=== PATIENT | female | born 1995 | race Caucasian/White ===

== ENCOUNTER 2016-11-12 13:36 | Emergency (ER) | payer OTHER ==
[2016-11-12] MEDS ORDERED: TETANUS,DIPHTHERIA TOXOID SYRINGE IM V ONE (14:37)
[2016-11-12] MEDS ORDERED: IBUPROFEN 600 MG TABLET ONE (14:37)
--- NOTE | 2016-11-12 14:59 | RAD ---
HISTORY: Right hand pain after punching a dog today. Pain over third, fourth and fifth metacarpals. Initial encounter. COMPARISON: None TECHNIQUE: Three views of the right hand FINDINGS: Bones: No fracture or dislocation. Patient is unable to remove right fourth digit ring. Joints: Unremarkable. Soft tissue: Normal. IMPRESSION: No fracture or dislocation.
== END 2016-11-12 15:05 | disposition home or self-care (01) ==
LOC: ED 13:36
DX: S61.451A Open bite of right hand, initial encounter (principal); S60.221A Contusion of right hand, initial encounter; J45.909 Unspecified asthma, uncomplicated; F17.210 Nicotine dependence, cigarettes, uncomplicated; Z23 Encounter for immunization; Z79.51 Long term (current) use of inhaled steroids; W54.0XXA Bitten by dog, initial encounter
CPT/HCPCS: 90714; 73130; 90471; 99283 ×2; A9270

== ENCOUNTER 2017-01-27 17:15 | Emergency (ER) | payer OTHER | END 2017-01-27 19:12 | disposition home or self-care (01) | LOC: ED 17:15 | DX: Z53.21 Procedure and treatment not carried out due to patient leaving prior to being seen by health care provider (principal) ==